=== PATIENT | male | born 1980 | race Caucasian/White ===

== ENCOUNTER 2019-09-08 08:50 | Emergency (ER) | payer OTHER ==
[~2019-09-08] VITALS: Ht 177.8 cm; Wt 72.6 kg
[2019-09-08] MEDS ORDERED: NOHOMEMEDICATIONS (09:07)
[2019-09-08 09:20] LABS: URINE BILIRUBIN NEGATIVE (Negative); URINE BLOOD NEGATIVE (Negative); URINE CLARITY CLEAR; URINE COLOR YELLOW; URINE GLUCOSE-RANDOM* NEGATIVE (Negative); URINE KETONES NEGATIVE (Negative); URINE LEUKOCYTES-REFLEX NEGATIVE (Negative); URINE NITRITE-REFLEX NEGATIVE (Negative); URINE PROTEIN (DIPSTICK) NEGATIVE (Negative); URINE SPECIFIC GRAVITY 1.015 (1.005-1.035)
[2019-09-08 09:29] LABS: HEMATOCRIT 46.4 % (42.0-52.0); HEMOGLOBIN 15.7 gm/dL (14.0-18.0); MCH 30.3 pg (26.0-34.0); MCHC 33.9 g/dL (28.0-37.0); MCV 89.4 fL (80.0-100.0); PLATELET COUNT 239 thou/uL (150-400); RBC 5.19 mil/uL (4.50-6.00); RDW 13.4 % (10.5-14.5); WBC 6.1 thou/uL (4.0-11.0)
[2019-09-08 09:37] LABS: CALCIUM 9.6 mg/dL (8.5-10.1); CREATININE 0.9 mg/dL (0.7-1.3); POTASSIUM 3.6 mmol/L (3.5-5.1)
[2019-09-08 09:42] LABS: ALBUMIN 4.5 g/dL (3.4-5.0); TOTAL BILIRUBIN 1.6 mg/dL (<0.1-1.0); TOTAL PROTEIN 7.9 g/dL (6.4-8.2)
[2019-09-08 10:32] LABS: ABSOLUTE NEUTROPHILS 3.9 thou/uL (1.4-8.2)
[2019-09-08 10:33] LABS: PLATELET ESTIMATE NORMAL
[2019-09-08] MEDS ORDERED: NORCO 5-325 TA1 EAC1 PO (12:42)
[2019-09-08] MEDS ORDERED: BENTYL 20 MG TA20 M1 PO (12:42)
[2019-09-08 13:08] VITALS: BP 139/101
== END 2019-09-08 13:14 | disposition home or self-care (01) ==
LOC: ER 08:50
PROVIDERS: Emergency Medicine Emergency Medical Services
DX: M54.9 Dorsalgia, unspecified (principal); R10.11 Right upper quadrant pain; Z88.6 Allergy status to analgesic agent

== ENCOUNTER 2020-12-08 14:42 | Emergency (ER) | payer OTHER ==
[~2020-12-08] VITALS: Ht 177.8 cm; Wt 77.1 kg
[~2020-12-08 14:42] MED LIST: BENTYL 20 MG TA20 M1 PO; NOHOMEMEDICATIONS; NORCO 5-325 TA1 EAC1 PO
[2020-12-08] MEDS ORDERED: HYDROCODON-ACE1 EAC7 PO (17:12)
[2020-12-08 17:28] VITALS: BP 128/93
== END 2020-12-08 17:28 | disposition home or self-care (01) ==
LOC: ER 14:42
DX: S52.502A Unspecified fracture of the lower end of left radius, initial encounter for closed fracture (principal); R51.9 Headache, unspecified; R20.0 Anesthesia of skin; Z79.899 Other long term (current) drug therapy; Z88.8 Allergy status to other drugs, medicaments and biological substances; V00.131A Fall from skateboard, initial encounter; Y93.51 Activity, roller skating (inline) and skateboarding; Y92.89 Other specified places as the place of occurrence of the external cause; Y99.8 Other external cause status